=== PATIENT | female | born 1940 | race Caucasian/White ===

== ENCOUNTER 2022-03-22 15:36 | Emergency (ER) | payer MEDICARE ==
[2022-03-22] MEDS ORDERED: PAXLOVID 300-11 EACH PO (19:09)
[2022-03-22] MEDS ORDERED: BENZONATATE200 MG PO (19:09)
== END 2022-03-22 19:19 | disposition home or self-care (01) ==
LOC: ER1 15:36
DX: U07.1 COVID-19 (principal); I10 Essential (primary) hypertension; Z79.899 Other long term (current) drug therapy
CPT/HCPCS: 71045; 99283; U0002